=== PATIENT | male | born 1995 | race Caucasian/White ===

== ENCOUNTER 2017-04-05 13:24 | Emergency (ER) | payer BC ==
[2017-04-05] MEDS ORDERED: ONDANSETRON 4 MG/2 ML VIAL IVP STA (13:46)
[2017-04-05] MEDS ORDERED: SODIUM CHLORIDE 0.9% 1,000 ML IV STA (13:46)
[2017-04-05] MEDS ORDERED: KETOROLAC 30 MG/ML 1 ML VIAL IVP STA (13:46)
--- NOTE | 2017-04-05 13:50 | ED ---
General Adult HPI - General Chief complaint: Back Pain/Injury Stated complaint: Abd Pain Time Seen by Provider: 04/05/17 13:32 Source: patient, RN notes reviewed Mode of arrival: ambulatory Limitations: no limitations - History of Present Illness Initial comments: 22-year-old male presents to the emergency department with a chief complaint of right-sided flank pain. Patient states that he does have some groin pain as well. After he urinated yesterday he just noticed that he felt he had to be again. Patient states he didn't have low back pain today. Patient states he hasn't had any fever or chills. Patient denies any history of this in the past. He went to [facility] breast is edematous blood in the urine and sent him here. Patient has a fall falls, traumas, or injuries. Patient denies any recent fever, chills, shortness of breath, chest pain, abdominal pain, nausea vomiting, numbness or tingling, dysuria, constipation or diarrhea, headaches or visual changes, or any other current symptoms. - Related Data Previous Rx's Medication Instructions Recorded Hydrocodone/Acetaminophen [[place] 1 each PO Q6HR PRN #20 tab 04/05/17 5-325] Ketorolac [Toradol] 10 mg PO Q6HR #20 tab 04/05/17 Ondansetron Odt [Zofran ODT] 4 mg PO Q8HR PRN #20 tab 04/05/17 Tamsulosin [Flomax] 0.4 mg PO DAILY #5 cap 04/05/17 Allergies Allergy/AdvReac Type Severity Reaction Status Date / Time No Known Allergies Allergy Verified 04/05/17 14:33 Review of Systems ROS Statement: Those systems with pertinent positive or pertinent negative responses have been documented in the HPI. ROS Other: All systems not noted in ROS Statement are negative. Past Medical History Past Medical History: No Reported History History of Any Multi-Drug Resistant Organisms: None Reported Past Surgical History: No Surgical Hx Reported Past Psychological History: No Psychological Hx Reported Smoking Status: Never smoker Past Alcohol Use History: Occasional Past Drug Use History: None Reported General Exam - General Exam Comments Initial Comments: General: The patient is awake and alert, in no distress, and does not appear acutely ill. Eye: Pupils are equal, round. Ears, nose, mouth and throat: There are moist mucous membranes. Neck: The neck is supple, there is no tenderness. Cardiovascular: There is a regular rate and rhythm. No murmur, rub or gallop is appreciated. Respiratory: Lungs are clear to auscultation, respirations are non-labored, breath sounds are equal. No wheezes, stridor, rales, or rhonchi. Gastrointestinal: Soft, non-distended, non-tender abdomen without masses or organomegaly noted. There is no rebound or guarding present. No CVA tenderness. Bowel sounds are unremarkable. Back: There is no tenderness to palpation in the midline. There is no obvious deformity. No rashes noted. Musculoskeletal: Normal ROM, no tenderness, There is no pedal edema. There is no calf tenderness or swelling. Sensation intact. Pulses equal bilaterally 2+. Neurological: CN II-XII intact, There are no obvious motor or sensory deficits. Coordination appears grossly intact. Speech is normal. Skin: Skin is warm and dry and no rashes or lesions are noted. Psychiatric: Cooperative, appropriate mood & affect, normal judgment. Limitations: no limitations Course Vital Signs 04/05/17 13:28 Temperature 97.8 F Pulse Rate 77 Respiratory 18 Rate Blood Pressure 131/82 O2 Sat by Pulse 97 Oximetry Medical Decision Making - Medical Decision Making 22-year-old male presents emergency Department chief complaint of right-sided flank pain. At this time patient's CAT scan lab work is reviewed and doesn't appear to have 3 mm stone. At this time we will start patient on medication for home and given follow-up to urology. We discussed return parameters all patient's questions. He stated that he understood and he is agreement plan. All questions have been answered. This time the patient will be discharged. - Lab Data Result diagrams: 04/05/17 14:05 04/05/17 14:05 Lab Results 04/05/17 04/05/17 04/05/17 Range/Units 13:44 14:05 14:05 WBC 7.4 (3.8-10.6) k/uL RBC 5.15 (4.30-5.90) m/uL Hgb 15.3 (13.0-17.5) gm/dL Hct 45.0 (39.0-53.0) % MCV 87.5 (80.0-100.0) fL MCH 29.6 (25.0-35.0) pg MCHC 33.9 (31.0-37.0) g/dL RDW 12.7 (11.5-15.5) % Plt Count 224 (150-450) k/uL Neutrophils % 73 % Lymphocytes % 18 % Monocytes % 6 % Eosinophils % 2 % Basophils % 0 % Neutrophils # 5.4 (1.3-7.7) k/uL Lymphocytes # 1.3 (1.0-4.8) k/uL Monocytes # 0.4 (0-1.0) k/uL Eosinophils # 0.1 (0-0.7) k/uL Basophils # 0.0 (0-0.2) k/uL Sodium 139 (137-145) mmol/L Potassium 4.3 (3.5-5.1) mmol/L Chloride 101 (98-107) mmol/L Carbon Dioxide 25 (22-30) mmol/L Anion Gap 13 mmol/L BUN 17 (9-20) mg/dL Creatinine 0.87 (0.66-1.25) mg/dL Est GFR (MDRD) Af Amer >60 (>60 ml/min/1.73 sqM) Est GFR (MDRD) Non-Af >60 (>60 ml/min/1.73 sqM) Glucose 97 (74-99) mg/dL Calcium 9.8 (8.4-10.2) mg/dL Total Bilirubin 0.7 (0.2-1.3) mg/dL AST 29 (17-59) U/L ALT 53 (21-72) U/L Alkaline Phosphatase 94 (38-126) U/L Total Protein 7.8 (6.3-8.2) g/dL Albumin 4.9 (3.5-5.0) g/dL Amylase <30 L (30-110) U/L Lipase 61 (23-300) U/L Urine Color Yellow Urine Appearance Clear (Clear) Urine pH 6.5 (5.0-8.0) Ur Specific [place] 1.025 (1.001-1.035) Urine Protein 1+ H (Negative) Urine Glucose (UA) Negative (Negative) Urine Ketones Negative (Negative) Urine Blood Large H (Negative) Urine Nitrite Negative (Negative) Urine Bilirubin Negative (Negative) Urine Urobilinogen <2.0 (<2.0) mg/dL Ur Leukocyte Esterase Trace H (Negative) Urine RBC >182 H (0-5) /hpf Urine WBC 2 (0-5) /hpf Ur Squamous Epith Cells 1 (0-4) /hpf Urine Mucus Many H (None) /hpf - Radiology Data Radiology results: report reviewed, image reviewed Disposition Clinical Impression: Right ureteral calculus Disposition: HOME SELF-CARE Condition: Stable Instructions: Kidney Stones (ED) Additional Instructions: Please use medication as discussed. Please follow up with family doctor if symptoms have not improved over the next two days. Please return to the emergency room if your symptoms increase or worsen or for any other concerns. Prescriptions: Hydrocodone/Acetaminophen [[place] 5-325] 1 each PO Q6HR PRN #20 tab PRN Reason: Pain Ketorolac [Toradol] 10 mg PO Q6HR #20 tab Ondansetron Odt [Zofran ODT] 4 mg PO Q8HR PRN #20 tab PRN Reason: Nausea Tamsulosin [Flomax] 0.4 mg PO DAILY #5 cap Referrals: Yaya Saavedra MD [STAFF PHYSICIAN] - 1-2 days Time of Disposition: 15:38
[2017-04-05 14:03] LABS: Appearance,Urine Clear (Clear); Bilirubin,Urine Negative (Negative); Glucose,Urine (UA) Negative (Negative); Ketones,Urine Negative (Negative); Leukocyte Esterase,Urine Trace (Negative); Mucus,Urine Many /hpf; Nitrite,Urine Negative (Negative); PH, Urine 6.5 (5.0-8.0); Particle Count 6871; Protein,Urine 1+ (Negative); RBC,Urine >182 /hpf (0-5); Specific Gravity,Urine 1.025 (1.001-1.035); Squamous Epithelial Cell,Urine 1 /hpf (0-4); UA Billing (MACRO vs. MICRO) MICRO; Urobilinogen,Urine <2.0 mg/dL (<2.0); WBC,Urine 2 /hpf (0-5)
[2017-04-05 14:16] LABS: Basophils % (A) 0 %; CH 29.8; CHCM 34.1; Eosinophils # (A) 0.1 k/uL (0-0.7); Eosinophils % (A) 2 %; HDW 2.62; HGB 15.3 gm/dL (13.0-17.5); Luc # (Auto) 0.07; Luc % (Auto) 1; Lymphocytes # (A) 1.3 k/uL (1.0-4.8); Lymphocytes % (A) 18 %; MCH 29.6 pg (25.0-35.0); MCHC 33.9 g/dL (31.0-37.0); MCV 87.5 fL (80.0-100.0); Monocytes # (A) 0.4 k/uL (0-1.0); Monocytes % (A) 6 %; Neutrophils # (A) 5.4 k/uL (1.3-7.7); Neutrophils % (A) 73 %; RBC 5.15 m/uL (4.30-5.90); RDW 12.7 % (11.5-15.5); WBC 7.4 k/uL (3.8-10.6); WBC (Perox) 7.24
[2017-04-05 14:30] LABS: ALT 53 U/L (21-72); AST 29 U/L (17-59); Alkaline Phosphatase 94 U/L (38-126); Amylase <30 U/L (30-110); Anion Gap 13 mmol/L; Blood Urea Nitrogen 17 mg/dL (9-20); Calcium 9.8 mg/dL (8.4-10.2); Carbon Dioxide 25 mmol/L (22-30); Chloride 101 mmol/L (98-107); Glucose 97 mg/dL (74-99); Non-African American GFR(MDRD) >60 (>60 ml/min/1.73 sqM); Potassium 4.3 mmol/L (3.5-5.1); Sodium 139 mmol/L (137-145); Total Bilirubin 0.7 mg/dL (0.2-1.3); Total Protein 7.8 g/dL (6.3-8.2)
--- NOTE | 2017-04-05 15:33 | CT ---
EXAMINATION TYPE: CT abdomen pelvis wo con DATE OF EXAM: 04/05/2017 COMPARISON: NONE INDICATION: Low back and right flank pain. DLP: 387.50 mGycm, Automated exposure control for dose reduction was used. CONTRAST: 0 mL of Omnipaque 300. Study performed without Oral Contrast TECHNIQUE: Axial images were obtained from above the diaphragm to the pubic rami in the axial plane a t 5 mm thick sections. Reconstructed images are reviewed on the computer in the coronal plane. FINDINGS: Limited CT sections are obtained the lung bases. The lung bases are clear. CT ABDOMEN: Liver: Normal Spleen: Normal Pancreas: Normal Adrenal glands: The adrenal glands are normal. Gallbladder: Normal Kidneys: No masses are evident. Mild right hydronephrosis and hydroureter is present. This extends th e urinary bladder. At the level urinary bladder there is a 0.3 cm calcification. This may be at the u reterovesical junction or within the urinary bladder. No additional ureteral stones are evident. No a dditional renal stones are evident. No cysts are present. Aorta: Normal Inferior vena cava: Normal. CT PELVIS: Loops of bowel within the abdomen and pelvis are normal. States performed without oral contrast l imiting evaluation of bowel loops. Appendix: Normal as visualized. Urinary bladder: Otherwise normal Genitourinary structures: Prostate is normal Osseous structures: No suspicious lytic or sclerotic lesions. IMPRESSIONS: 1. 0.3 cm calcification at the right ureterovesical junction or within urinary bladder. There is lizzette e mild right hydroureter suggesting recent passage of the stone.
[2017-04-05 16:15] VITALS: BP 129/68; PULSE 72; RESP 16; TEMP 98.6
== END 2017-04-05 16:14 | disposition home or self-care (01) ==
LOC: EC 13:24
DX: N20.1 Calculus of ureter (principal)
CPT/HCPCS: 36415; 80053; 82150; 83690; 85025; 81001; 87086; 74176; 99284; 96374; 96375; 96361; J2405; J1885

== ENCOUNTER → 2023-11-26 | Outpatient (CLI) | payer BC ==
--- NOTE | 2023-11-26 18:57 | CT ---
EXAMINATION TYPE: CT soft tissue neck w con CT DLP: 381.9 mGycm, Automated exposure control for dose reduction was used. DATE OF EXAM: 11/26/2023 5:06 PM COMPARISON: None. CLINICAL INDICATION:Male, 28 years old with history of J31.2 CHRONIC PHARYNGITIS; PHH, throat swellin g and tightness TECHNIQUE: Standard enhanced CT of the neck. Axial sections with coronal and sagittal reformats were obtained. Contrast used:100ml mL of Isovue 300 with IV Contrast, (None if empty) Oral contrast used: (None if empty) FINDINGS: Brain: Visualized portions are grossly unremarkable. Orbits: Unremarkable Sinuses: Grossly unremarkable. Spaces of the neck: Clear and symmetric. Right palatine tonsil calcification. Musculoskeletal: No acute osseous pathology. Lymph nodes: Multiple nonenlarged lymph nodes are seen along both anterior chains of the neck. Vascular structures: Visualized major arteries are patent without evidence of aneurysm. Thoracic Inlet/airway: Airway is patent. The lung apices are clear. Soft tissues/Thyroid: Thyroid and remainder of the soft tissues are unremarkable. Other: none. IMPRESSION 1. No abnormality correlate patient's symptoms. 2. Enlarged palatine tonsils with right Tonsil Stone.
== END | disposition home or self-care (01) ==
LOC: RADCTMAIN 16:43
PROVIDERS: ATTEND Otolaryngology
DX: J35.1 Hypertrophy of tonsils (principal); J35.8 Other chronic diseases of tonsils and adenoids; J31.2 Chronic pharyngitis
CPT/HCPCS: 70491; Q9967